=== PATIENT | male | born 1995 | race Asian ===

== ENCOUNTER 2024-01-03 01:29 | Inpatient (IN) | payer BC ==
[2024-01-03 01:58] VITALS: BMI 22.1
[2024-01-03] MEDS ORDERED: Ondansetron PF 4 MG/2 ML Vial IVP PRN (02:03)
[2024-01-03] MEDS ORDERED: Acetaminophen 325 MG TAB PO PRN (02:03)
[2024-01-03] MEDS: Sodium Chloride 0.9% 1,000 ML IV SCH ×2 (02:28→03:15)
[2024-01-03 02:35] LABS: #Basophils Less than 0.03 10x3/uL (0.0-0.2); %Basophils 0.2 % (0.0-1.0); %Eosinophils 0.6 % (0.0-10.0); %Monocytes 3.3 % (0.0-10.0); %Neutrophils 66.7 % (42.0-75.0); Hematocrit 25.1 % (42.0-52.0); Hemoglobin 8.4 g/dL (14.0-18.0); Mean Corpuscular HGB CONC 33.5 g/dL (32.0-36.0); Mean Corpuscular Hemoglobin 29.5 pg (27.0-31.0); Mean Corpuscular Volume 88.1 fL (78.0-98.0); Mean Platelet Volume 10.4 fL (7.4-10.4); Platelet Count 190 10x3/uL (130-400); RBC Distribution Width 12.4 % (11.5-14.5); Red Blood Cell (RBC) Count 2.85 mill/uL (4.70-6.10)
[2024-01-03 02:48] LABS: Anion Gap 9 mmol/L (10-20); BUN (Urea Nitrogen) 21 mg/dL (8.9-20.6); Calc. Creatinine Clearance 119 mL/min (70-130); Calcium 7.9 mg/dL (7.8-10.44); Carbon Dioxide 25 mmol/L (22-29); Chloride 107 mmol/L (98-107); Estimated GFR 122; Glucose 99 mg/dL (70-105); Iron 82 ug/dL (65-175); Iron Binding Capacity, Total 264 mcg/dL (261-462); Sodium 137 mmol/L (136-145)
[2024-01-03 02:48] LABS: INR-International Normal Ratio 1.2
[2024-01-03 02:48] LABS: Iron 89 ug/dL (65-175); Iron Binding Capacity, Total 261 mcg/dL (261-462)
[2024-01-03 02:49] LABS: PTT 29.4 sec (22.9-36.1)
[2024-01-03 06:49] LABS: Hematocrit 22.2 % (42.0-52.0); Hemoglobin 7.4 g/dL (14.0-18.0)
[2024-01-03] MEDS: Pantoprazole 40 MG VIAL IVP SCH ×2 (08:34→20:10)
[2024-01-03] MEDS ORDERED: Pantoprazole 80 MG, Admixture Fee 1 EACH in Sodium Chloride 0.9% 100 ML IVPB SCH (10:30)
[2024-01-03] MEDS ORDERED: PROPOFOL 20 ML ONE (11:54)
[2024-01-03] MEDS ORDERED: Lidocaine 1% PF 5 ML VIAL ONE (11:54)
[2024-01-03] MEDS ORDERED: fentaNYL 50 mcg/mL 1 mL Vial ONE (11:54)
[2024-01-03] MEDS ORDERED: PHENYLEPHRINE-NS 100 MCG/ML 10 ML SYRINGE ONE (12:17)
[2024-01-03] MEDS ORDERED: Ondansetron HCl/PF 4 MG/2 ML Vial IVP PRN (12:41)
[2024-01-03] MEDS ORDERED: Promethazine HCl 25 MG/ML VIAL IM PRN (12:41)
[2024-01-03 14:52] LABS: Hematocrit 25.1 % (42.0-52.0); Hemoglobin 8.5 g/dL (14.0-18.0)
[2024-01-04 00:23] LABS: Hematocrit 23.3 % (42.0-52.0); Hemoglobin 7.9 g/dL (14.0-18.0)
[2024-01-04 04:37] LABS: #Basophils Less than 0.03 10x3/uL (0.0-0.2); %Basophils 0.2 % (0.0-1.0); %Eosinophils 1.5 % (0.0-10.0); %Lymphocytes 48.6 % (21.0-51.0); %Monocytes 4.5 % (0.0-10.0); %Neutrophils 44.8 % (42.0-75.0); Mean Corpuscular HGB CONC 33.3 g/dL (32.0-36.0); Mean Corpuscular Hemoglobin 30.3 pg (27.0-31.0); Mean Corpuscular Volume 90.9 fL (78.0-98.0); Mean Platelet Volume 10.5 fL (7.4-10.4); Platelet Count 144 10x3/uL (130-400); RBC Distribution Width 13.1 % (11.5-14.5); Red Blood Cell (RBC) Count 2.64 mill/uL (4.70-6.10)
[2024-01-04 04:46] LABS: Anion Gap 9 mmol/L (10-20); BUN (Urea Nitrogen) 9 mg/dL (8.9-20.6); Calc. Creatinine Clearance 127 mL/min (70-130); Calcium 7.2 mg/dL (7.8-10.44); Carbon Dioxide 23 mmol/L (22-29); Chloride 114 mmol/L (98-107); Estimated GFR 125; Glucose 78 mg/dL (70-105); Potassium 3.4 mmol/L (3.5-5.1); Sodium 143 mmol/L (136-145)
[2024-01-04 05:24] VITALS: BP 100/55
[2024-01-04 09:39] VITALS: TEMP 97.8
== END 2024-01-04 10:34 | disposition home or self-care (01) | DRG 378 ==
LOC: 2NO 01:29 → OBSVTOIN 17:59
PROVIDERS: ADMIT Internal Medicine; ATTEND Internal Medicine
PROC: 0DB68ZX Excision of Stomach, Via Natural or Artificial Opening Endoscopic, Diagnostic (ICD-10-PCS; principal; 2024-01-03)
PROC: 30233N1 Transfusion of Nonautologous Red Blood Cells into Peripheral Vein, Percutaneous Approach (ICD-10-PCS; 2024-01-03)
DX: K26.4 Chronic or unspecified duodenal ulcer with hemorrhage (principal); D62 Acute posthemorrhagic anemia; F10.90 Alcohol use, unspecified, uncomplicated; K44.9 Diaphragmatic hernia without obstruction or gangrene; K29.51 Unspecified chronic gastritis with bleeding; B96.81 Helicobacter pylori [H. pylori] as the cause of diseases classified elsewhere
CPT/HCPCS: 36415; 36430; 80048; 82728; 83540; 83550; 85025; 85610; 85730; 86850; 86900; 86901; 88305; 96374; C9113; G0378; J2704; J3010; J7050; P9016